=== PATIENT | male | born 1955 | race Two or more races ===

== ENCOUNTER 2018-07-05 09:58 | Outpatient (CLI) | payer BC, SELFPAY ==
[2018-07-05 13:09] LABS: Anion Gap 5.2 mmol/L (3-11); BUN 13 mg/dL (7-18); CO2 28.8 mmol/L (21.0-32.0); CREATININE 0.81 mg/dL (0.70-1.30); Chloride 105 mmol/L (98-107); Glucose 96 mg/dL (70-100); Potassium 4.7 mmol/L (3.5-5.1); Sodium 139 mmol/L (136-145)
== END 2018-07-05 10:18 ==
PROVIDERS: PCP Family Medicine; Visit Provider Family Medicine
DX: Z00.00 Encounter for general adult medical examination without abnormal findings (principal)
CPT/HCPCS: 36415; 80048

== ENCOUNTER 2019-07-14 09:47 | Outpatient (CLI) | payer MEDICARE, OTHER, SELFPAY ==
[2019-07-14 13:15] LABS: Anion Gap 7.2 mmol/L (3-11); BUN 15 mg/dL (7-18); CO2 27.8 mmol/L (21.0-32.0); CREATININE 0.83 mg/dL (0.70-1.30); Calcium 8.5 mg/dL (8.5-10.1); Chloride 104 mmol/L (98-107); Glucose 99 mg/dL (70-100); Potassium 5.2 mmol/L (3.5-5.1); Sodium 139 mmol/L (136-145)
== END 2019-07-14 10:07 ==
PROVIDERS: PCP Family Medicine; Visit Provider Family Medicine
DX: I10 Essential (primary) hypertension (principal)
CPT/HCPCS: 36415; 80048

== ENCOUNTER → 2019-08-07 14:55 | Outpatient (BNVA) | payer MEDICARE, OTHER, SELFPAY | PROVIDERS: PCP Family Medicine; Referring Provider Family Medicine; Visit Provider Surgery | DX: R10.32 Left lower quadrant pain (principal); G89.29 Other chronic pain; M25.552 Pain in left hip; Z87.19 Personal history of other diseases of the digestive system; Z85.72 Personal history of non-Hodgkin lymphomas | CPT/HCPCS: 99202 ==

== ENCOUNTER 2019-08-11 04:38 | Outpatient (CLI) | payer MEDICARE, OTHER, SELFPAY ==
--- NOTE | 2019-08-11 12:56 | DI.US_ITS ---
EXAM: US SOFT TISS EXTREMITY/GROIN CLINICAL HISTORY: Left groin pain/discomfort. History of prior hernia repair. TECHNIQUE: Ultrasound performed using standard protocol. COMPARISON: No exams were available for comparison FINDINGS: No hernia is identified. There are a few small left groin lymph nodes which maintain a fatty hilum. IMPRESSION: No evidence of groin hernia.
== END 2019-08-11 04:58 ==
PROVIDERS: PCP Family Medicine; Visit Provider Surgery
DX: R59.0 Localized enlarged lymph nodes (principal); R10.32 Left lower quadrant pain; Z98.890 Other specified postprocedural states; G89.29 Other chronic pain
CPT/HCPCS: 76882

== ENCOUNTER 2020-05-16 08:52 | Outpatient (REF) | payer MEDICARE, OTHER, SELFPAY ==
--- NOTE | 2020-05-17 08:35 | SKI_PTH ---
PATIENT: Luis Mcpherson LOC: [facility]#:[id number] AGE/SX: 64/M ROOM: RE05/16/[address]: Andrea Ritter MD : [id number] BED: DIS: 05/16/2020 SPEC #: [id number] RECD: 05/17/20 12:47 STATUS: TRICIA REMalcom #: [id number] YARI: 05/17/20 08:[address]: Andrea Ritter DEPT: Surgical Specimen RECD BY: Joanie Brown ENTERED: 05/17/20 12:50 SP TYPE: ELODIA ANTUNEZ DR: DANNY Olivarez Tissues: 1 - SKIN BIOPSY(SHAVE/PUNCH) Procedures: SKIN LEVEL 4 Comments: [id number]
== END 2020-05-16 09:12 ==
LOC: LBN 08:52
PROVIDERS: PCP Nurse Practitioner Family; Visit Provider Otolaryngology
DX: C44.41 Basal cell carcinoma of skin of scalp and neck (principal)
CPT/HCPCS: 88305

== ENCOUNTER 2020-07-24 02:59 | Outpatient (CLI) | payer MEDICARE, OTHER, SELFPAY ==
[2020-07-24 08:02] LABS: Absolute Basophil Count 0.02 10^3/uL (0.0-0.2); Absolute Eosinophil Count 0.11 10^3/uL (0.0-0.7); Absolute Lymphocyte Count 0.43 10^3/uL (1.2-3.4); Absolute Monocyte Count 0.39 10^3/uL (0.1-0.8); Absolute Neutrophil Count 1.96 10^3/uL (1.2-6.7); Basophils % 0.7; Eosinophils % 3.8; HCT 38.1 % (40.0-50.0); HGB 13.2 g/dL (13.5-17.5); Lymphocytes % 14.8; MCH 33.2 pg (27.0-33.0); MCHC 34.6 % (32.0-36.0); MCV 95.7 fL (80-95); MPV 9.4 fL (8.0-11.0); Monocytes % 13.4; Neutrophils % 67.3; Nucleated RBC 0 %; Platelet Count 202 10^3/uL (130-400); RBC 3.98 10^6/uL (4.36-5.78); RDW-SD 42.2 fL; WBC 2.91 10^3/uL (4.4-10.8)
[2020-07-24 08:20] LABS: Hemoglobin A1C 5.3 % (<5.7)
[2020-07-24 09:21] LABS: Anion Gap 4.5 mmol/L (3-11); BUN 12 mg/dL (7-18); CO2 29.5 mmol/L (21.0-32.0); CREATININE 0.77 mg/dL (0.70-1.30); Calcium 8.6 mg/dL (8.5-10.1); Calculated LDL 89 mg/dL (<100); Chloride 104 mmol/L (98-107); Cholesterol 151 mg/dL (<200); Glucose 85 mg/dL (74-106); HDL Cholesterol 55 mg/dL (40-60); Potassium 4.5 mmol/L (3.5-5.1); Sodium 138 mmol/L (136-145); Triglyceride 35 mg/dL (<150)
[2020-07-24 09:55] LABS: FREE T4 0.83 ng/dL (0.76-1.46)
[2020-07-29 23:16] LABS: Thyroglobulin Antibody <15 U/mL (<=60); Thyroperoxidase Antibody 45 U/mL (<=60)
== END 2020-07-24 03:19 ==
PROVIDERS: PCP Nurse Practitioner Family; Visit Provider Nurse Practitioner Family
DX: I10 Essential (primary) hypertension (principal); R73.01 Impaired fasting glucose; R79.89 Other specified abnormal findings of blood chemistry; L65.9 Nonscarring hair loss, unspecified; Z85.72 Personal history of non-Hodgkin lymphomas
CPT/HCPCS: 36415; 80048; 80061; 86376; 83036; 84439; 84443; 85025

== ENCOUNTER 2020-09-02 04:02 | Outpatient (CLI) | payer MEDICARE, OTHER, SELFPAY ==
[2020-09-02 09:27] LABS: Ferritin 68 ng/mL (26-388); Folate 17.6 ng/mL (8.6-20.0); Vitamin B12 488 pg/mL (193-986)
== END 2020-09-02 04:22 ==
PROVIDERS: PCP Nurse Practitioner Family; Visit Provider Nurse Practitioner Family
DX: D64.9 Anemia, unspecified (principal)
CPT/HCPCS: 36415; 82607; 82728; 82746

== ENCOUNTER 2021-08-01 01:18 | Outpatient (CLI) | payer MEDICARE, SELFPAY ==
[2021-08-01 12:59] LABS: Absolute Basophil Count 0.02 10^3/uL (0.0-0.2); Absolute Eosinophil Count 0.05 10^3/uL (0.0-0.7); Absolute Lymphocyte Count 0.42 10^3/uL (1.2-3.4); Absolute Monocyte Count 0.43 10^3/uL (0.1-0.8); Absolute Neutrophil Count 1.42 10^3/uL (1.2-6.7); Basophils % 0.9; Eosinophils % 2.1; HGB 13.1 g/dL (13.5-17.5); Lymphocytes % 17.9; MCH 31.8 pg (27.0-33.0); MCHC 33.6 % (32.0-36.0); MCV 94.7 fL (80-95); MPV 9.8 fL (8.0-11.0); Monocytes % 18.4; Neutrophils % 60.7; Nucleated RBC 0 %; Platelet Count 215 10^3/uL (130-400); RBC 4.12 10^6/uL (4.36-5.78); RDW 11.9 % (11.8-14.1); RDW-SD 41.2 fL; WBC 2.34 10^3/uL (4.4-10.8)
[2021-08-01 13:11] LABS: ESR < 1 mm/hr (0-20)
[2021-08-01 13:24] LABS: Anion Gap 5.7 mmol/L (3-11); BUN 13 mg/dL (7-18); CO2 28.3 mmol/L (21.0-32.0); CREATININE 0.8 mg/dL (0.70-1.30); Calcium 8.7 mg/dL (8.5-10.1); Chloride 104 mmol/L (98-107); Glucose 86 mg/dL (74-106); Potassium 4.7 mmol/L (3.5-5.1); Sodium 138 mmol/L (136-145)
[2021-08-01 13:32] LABS: C-Reactive Protein < 0.05 mg/dL (0.0-0.3)
== END 2021-08-01 01:19 | disposition home or self-care (01) ==
LOC: LOS 01:18
PROVIDERS: PCP Nurse Practitioner Family; Visit Provider Nurse Practitioner Family
DX: I10 Essential (primary) hypertension; Z85.72 Personal history of non-Hodgkin lymphomas; M79.89 Other specified soft tissue disorders
CPT/HCPCS: 36415; 80048; 85652; 85025; 86140

== ENCOUNTER 2022-06-25 18:55 | Outpatient (REF) | payer MEDICARE, SELFPAY ==
[2022-06-26 23:05] LABS: Campylobacter PCR Negative (Negative); Salmonella PCR Negative (Negative); Shiga Toxin PCR Negative (Negative); Shigella/Enteroinvasive Ecoli Negative (Negative)
== END 2022-06-25 18:56 | disposition home or self-care (01) ==
LOC: LBN 18:55
PROVIDERS: Nurse Practitioner Family; PCP Nurse Practitioner Family; Visit Provider Nurse Practitioner Family
DX: R19.7 Diarrhea, unspecified (principal)
CPT/HCPCS: 87505

== ENCOUNTER 2022-06-28 18:56 | Emergency (ER) | payer MEDICARE, SELFPAY ==
[2022-06-28 19:14] VITALS: BP 150/92; PULSE 69; RESP 18; TEMP 36.6; O2SAT 100
--- NOTE | 2022-06-28 20:23 | ED.GENADUL_ITS ---
Discharge Plan Disposition Patient Disposition: HOME Condition: Stable Discharge Details Clinical Impression: Alteration in vision Primary Care Provider: Martha Guajardo ED Provider: Darrell Johnston Home Meds and New Rx's Prescriptions: Continued loperamide 2 mg capsule 2 mg PO QID PRN (Reason: loose stool) Qty: 60 0RF lisinopril 20 mg tablet 20 mg PO DAILY Qty: 90 4RF Discharge Instructions Additional Instructions: your visual exam did not show concerning findings and your history was not consistent with symptoms of a stroke of the eye follow up with your eye care provider within 1 week if you feel more ill, have decrease in vision or pain in the eye return to the emergency department for reevaluation Medical Decision Making 66 yo male with hx of htn and wears contacts comes in with complaints of blurred vision. He states he has had diarrhea for about a week, denies fevers or abdominal pain or n/v. He has been seeing his pcp for this. Today he felt well but an hour or so ago he was standing when in his left eye in the lower left visual field he noticed it was blurry and appeared blue and wavy. Denies loss of vision or seeing any blackness indicating loss of vision. no pain, denies trauma. The symptoms resolved and he came here for an evaluation. Denies any slurred speech or weakness. HE arrives stable, speaking in full sentences with normal gait. He has no periorbital swelling, normal conjunctiva, eomi and perrl in both eyes. He has 20/25 vision and no visual field deficits. He has normal appearing retina on exam and normal vessels, no evidence of vitreal hemorrhage nor retinal hemorrhage and would not expect his symptoms to have resolved if these were the cause. HE has no findings to suggest central retinal artery or vein occlusion. He has no temporal artery tenderness to suggest giant cell arteritis. His symptoms are not consistent with amaurosis fugax and do not feel cva/tia workup indicated. Suspect possible floaters or other nonemergent pathology that can be followed up with his eye care provider he already sees. Return precautions given Differential Diagnosis Differential Diagnosis: macular degeneration, cataract, floaters HPI General Mode of arrival: ambulatory . Date/Time Provider Initiated Documentation: 06/28/22 19:24 . Limitations to Documentation: no limitations . Information obtained by: patient . History of Present Illness 66 year old M presents to the emergency department with the chief complaint of visual changes, described as moderate, Patient started experiencing this hour(s) (1) and it has been now resolved. No relieving factors improve symptom(s), No exacerbating factors reported . Patient notes no other symptoms.. Related Data Home Medications Medication Instructions Recorded Confirmed lisinopril 20 mg tablet 20 mg PO DAILY #90 tabs 10/10/21 06/28/22 loperamide 2 mg capsule 2 mg PO QID PRN loose stool #60 06/25/22 06/28/22 caps Previous Rx's Medication Instructions Recorded lisinopril 20 mg tablet 20 mg PO DAILY #90 tabs 10/10/21 loperamide 2 mg capsule 2 mg PO QID PRN loose stool #60 06/25/22 caps Allergies Allergy/AdvReac Type Severity Reaction Status Date / Time No Known Allergies Allergy Verified 06/28/22 19:17 General Stated Complaint: EyeProblem STEPHEN: 4 Review of Systems All systems reviewed & are unremarkable except as noted in HPI and below Constitutional Constitutional: Denies chills, Denies fever(s) and Denies weakness Eyes Eyes: Denies loss of vision Cardiovascular Cardiovascular: Denies chest pain and Denies dyspnea Respiratory Respiratory: Denies cough and Denies dyspnea Gastrointestinal Gastrointestinal: Denies abdominal pain, Denies nausea and Denies vomiting Musculoskeletal Musculoskeletal: Denies joint swelling Neurologic Neurologic: Denies loss of vision and Denies weakness PFSH All Active Problems (Updated 06/28/22 @ 20:31 by Darrell Johnston MD) Alteration in vision (Acute) Nasal vestibulitis (Acute) Essential hypertension (Chronic) Medical History Basal cell carcinoma of scalp or skin of neck Non Hodgkin's lymphoma In the 1980s s/p chemo, radiation Surgical History S/P left inguinal hernia repair Family History Mother , AGE 60 Breast cancer Hypertension Father , AGE 90 Essential hypertension Heart disease Alcohol abuse Bladder cancer Sister Hyperlipidemia Breast cancer Brother Heart disease Hypertension Brother Thyroid cancer Maternal Grandfather No problems noted. Maternal Grandmother No problems noted. Paternal Grandfather No problems noted. Paternal Grandmother No problems noted. Social History Smoking/Tobacco Use Status: Never Smoking risk assessment performed?: Yes Alcohol Intake: current Alcohol Intake frequency: a few times a month Drug use: Never Substance use type: does not use current occupation: [employer] What type of physical activity do you participate in: walking and bicycling Frequency: 5-6 times per week Do you feel safe at home: Yes Do you feel safe in your relationship?: Yes Exam Const General: no acute distress Orientation: alert HENMT Head: normal to inspection Ears: external ears normal General nose exam: external nose normal Mouth: moist mucous membranes Eyes General: appearance normal, both eyes and all related structures Neck Neck: normal visual inspection Resp Effort & Inspection: normal respiratory effort and able to speak in complete sentences Cardio Rate: regular rate Skin General skin exam: no rashes or lesions noted Neuro General: patient alert and patient oriented x3 Extrem General: normal to inspection Psych Mental Status: mental status grossly normal Course Vital Signs Vital signs: Vital Signs Temperature 36.6 C 06/28/22 19:14 Pulse 69 06/28/22 19:14 Respiratory Rate 18 06/28/22 19:14 Blood Pressure 150/92 H 06/28/22 19:14 Pulse Oximetry 100 06/28/22 19:14 Temperature 36.6 C 06/28/22 19:14 Pulse 69 06/28/22 19:14 Respiratory Rate 18 06/28/22 19:14 Respiratory Effort Non-Labored 06/28/22 19:18 Blood Pressure 150/92 H 06/28/22 19:14 Pulse Oximetry 100 06/28/22 19:14 Pain Level 0 06/28/22 19:14 PAWSS Have you Been Recently Intoxicated or Drunk Within the Last 30 days?: No Have you Ever Experienced Previous Episodes of Alcohol Withdrawal?: No Have you ever Experienced Withdrawal Seizures?: No Have you ever Experienced Delirium Tremens(DT)s?: No Have you ever undergone Alcohol Rehabilitation Treatment (i.e, inpt ot outpatient treatment programs)?: No Have you ever Experienced Blackouts?: No Have you ever Combined Alcohol with other Downers within the last 90 days?: No Have you ever Combined Alcohol with any other Substance of Abuse during the last 90 days?: No Positive Blood Alcohol level on Presentation? [PCS.BAL]: No Evidence of Increased Autonomic Activity (i.e. HR>120, tremor, sweating, agitation, nausea)?: No Result: 0
== END 2022-06-28 20:37 | disposition home or self-care (01) ==
PROVIDERS: Emergency Provider Emergency Medicine; PCP Nurse Practitioner Family
DX: H53.8 Other visual disturbances (principal); I10 Essential (primary) hypertension; R19.7 Diarrhea, unspecified
CPT/HCPCS: 99281; 99282

== ENCOUNTER 2022-07-08 02:53 | Outpatient (CLI) | payer MEDICARE, SELFPAY ==
[2022-07-08 12:30] LABS: Abs Immature Grans 0.01 10^3/uL (0.0-0.06); Absolute Basophil Count 0.03 10^3/uL (0.0-0.2); Absolute Eosinophil Count 0.03 10^3/uL (0.0-0.7); Absolute Lymphocyte Count 0.57 10^3/uL (1.2-3.4); Absolute Monocyte Count 0.39 10^3/uL (0.1-0.8); Absolute Neutrophil Count 2.35 10^3/uL (1.2-6.7); Basophils % 0.9; Eosinophils % 0.9; HCT 36.8 % (40.0-50.0); HGB 12.2 g/dL (13.5-17.5); Immature Grans % 0.3; Lymphocytes % 16.9; MCH 31.9 pg (27.0-33.0); MCHC 33.2 % (32.0-36.0); MCV 96 fL (80-95); MPV 10.2 fL (8.0-11.0); Monocytes % 11.5; Neutrophils % 69.5; Platelet Count 234 10^3/uL (130-400); RBC 3.83 10^6/uL (4.36-5.78); RDW-SD 42.5 fL; WBC 3.38 10^3/uL (4.4-10.8)
[2022-07-08 12:51] LABS: ALT 27 U/L (16-63); AST 25 U/L (15-37); Albumin 3.3 g/dL (3.4-5.0); Alkaline Phosphatase 72 U/L (46-116); Anion Gap 4.7 mmol/L (3-11); BUN 13 mg/dL (7-18); Bilirubin, Total 0.6 mg/dL (0.2-1.0); CO2 28.3 mmol/L (21.0-32.0); CREATININE 0.9 mg/dL (0.70-1.30); Calcium 8.5 mg/dL (8.5-10.1); Chloride 102 mmol/L (98-107); Estimated GFR 93.03 (mL/min/1.73m2); FREE T4 1.09 ng/dL (0.76-1.46); Glucose 85 mg/dL (74-106); Potassium 4.5 mmol/L (3.5-5.1); Sodium 135 mmol/L (136-145); TSH 3.68 uIU/mL (0.36-3.74); Total Protein 6.1 g/dL (6.4-8.2)
== END 2022-07-08 02:54 | disposition home or self-care (01) ==
LOC: LOS 02:53
PROVIDERS: PCP Nurse Practitioner Family; Visit Provider Nurse Practitioner Family
DX: I10 Essential (primary) hypertension (principal); Z85.72 Personal history of non-Hodgkin lymphomas
CPT/HCPCS: 36415; 80053; 84439; 84443; 85025

== ENCOUNTER 2023-02-01 13:56 | Outpatient (CLI) | payer MEDICARE, SELFPAY ==
[2023-02-01 12:21] LABS: Absolute Basophil Count 0.05 10^3/uL (0.0-0.2); Absolute Lymphocyte Count 0.65 10^3/uL (1.2-3.4); Absolute Monocyte Count 0.47 10^3/uL (0.1-0.8); Absolute Neutrophil Count 1.65 10^3/uL (1.2-6.7); Basophils % 1.7; Eosinophils % 3.4; HCT 40.4 % (40.0-50.0); HGB 13.7 g/dL (13.5-17.5); Lymphocytes % 22.3; MCHC 33.9 % (32.0-36.0); MCV 94 fL (80-95); MPV 10.1 fL (8.0-11.0); Monocytes % 16.1; Neutrophils % 56.5; Platelet Count 214 10^3/uL (130-400); RBC 4.28 10^6/uL (4.36-5.78); RDW 12.5 % (11.8-14.1); RDW-SD 43.5 fL; WBC 2.92 10^3/uL (4.4-10.8)
== END 2023-02-01 13:57 | disposition home or self-care (01) ==
PROVIDERS: PCP Nurse Practitioner Family; Visit Provider Nurse Practitioner Family
DX: D53.9 Nutritional anemia, unspecified (principal)
CPT/HCPCS: 36415; 85025

== ENCOUNTER 2023-08-12 02:33 | Outpatient (CLI) | payer MEDICARE, SELFPAY ==
[2023-08-12 14:05] LABS: Abs Immature Grans 0.01 10^3/uL (0.0-0.06); Absolute Basophil Count 0.03 10^3/uL (0.0-0.2); Absolute Eosinophil Count 0.03 10^3/uL (0.0-0.7); Absolute Lymphocyte Count 0.35 10^3/uL (1.2-3.4); Absolute Neutrophil Count 1.78 10^3/uL (1.2-6.7); Basophils % 1.2; Eosinophils % 1.2; HCT 36.6 % (40.0-50.0); HGB 12.7 g/dL (13.5-17.5); Immature Grans % 0.4; Lymphocytes % 13.5; MCH 32.2 pg (27.0-33.0); MCHC 34.7 % (32.0-36.0); MCV 93 fL (80-95); MPV 9.2 fL (8.0-11.0); Monocytes % 15.4; Neutrophils % 68.3; Platelet Count 204 10^3/uL (130-400); RBC 3.94 10^6/uL (4.36-5.78); RDW 11.9 % (11.8-14.1); RDW-SD 40.5 fL
[2023-08-12 14:29] LABS: Anion Gap 7.1 mmol/L (3-11); BUN 15 mg/dL (7-18); CO2 25.9 mmol/L (21.0-32.0); CREATININE 0.9 mg/dL (0.70-1.30); Calcium 8.7 mg/dL (8.5-10.1); Calculated LDL 72 mg/dL (<100); Chloride 100 mmol/L (98-107); Cholesterol 131 mg/dL (<200); Estimated GFR 92.45 (mL/min/1.73m2); Glucose 125 mg/dL (74-106); HDL Cholesterol 49 mg/dL (40-60); Potassium 4.2 mmol/L (3.5-5.1); Sodium 133 mmol/L (136-145); Triglyceride 54 mg/dL (<150)
[2023-08-13 08:05] LABS: Hepatitis C Ab w Rflx HCV PCR Negative (Negative)
== END 2023-08-12 02:34 | disposition home or self-care (01) ==
LOC: LBO 02:33
PROVIDERS: PCP Nurse Practitioner Family; Visit Provider Nurse Practitioner Family
DX: Z00.00 Encounter for general adult medical examination without abnormal findings (principal)
CPT/HCPCS: 36415; 80048; 80061; 82306; 86803; 85025

== ENCOUNTER 2024-04-18 03:06 | Outpatient (CLI) | payer MEDICARE, SELFPAY ==
[2024-04-18 09:32] LABS: Absolute Basophil Count 0.02 10^3/uL (0.0-0.2); Absolute Eosinophil Count 0.07 10^3/uL (0.0-0.7); Absolute Lymphocyte Count 0.56 10^3/uL (1.2-3.4); Absolute Neutrophil Count 1.74 10^3/uL (1.2-6.7); Basophils % 0.7 %; Eosinophils % 2.6 %; HGB 13.8 g/dL (13.5-17.5); Lymphocytes % 20.8 %; MCH 32.9 pg (27.0-33.0); MCHC 35.4 % (32.0-36.0); MCV 93 fL (80-95); MPV 9.6 fL (8.0-11.0); Monocytes % 11.2 %; Neutrophils % 64.7 %; Platelet Count 245 10^3/uL (130-400); RBC 4.19 10^6/uL (4.36-5.78); RDW 12.1 % (11.8-14.1); RDW-SD 41.9 fL; WBC 2.69 10^3/uL (4.4-10.8)
[2024-04-18 10:40] LABS: BUN 11 mg/dL (7-18); CREATININE 0.8 mg/dL (0.70-1.30); Calcium 9.2 mg/dL (8.5-10.1); Chloride 103 mmol/L (98-107); Estimated GFR 95.21 (mL/min/1.73m2); Glucose 95 mg/dL (74-106); Potassium 4.4 mmol/L (3.5-5.1); Sodium 139 mmol/L (136-145); Vitamin D 25 Total 29.1 ng/mL (30-100)
[2024-04-18 20:29] LABS: HIV-1/2 Ag & Ab Screen Negative (Negative)
[2024-04-21 13:19] LABS: HBs Antibody, Quant 5.9 mIU/mL (See Note); Hep B Surface Ab Negative (See Note); Hepatitis B Core Antibody Negative (Negative); Hepatitis B Surface Antigen Negative (Negative)
== END 2024-04-18 03:07 | disposition home or self-care (01) ==
PROVIDERS: PCP Nurse Practitioner Family; Visit Provider Nurse Practitioner Family
DX: D72.819 Decreased white blood cell count, unspecified (principal); E55.9 Vitamin D deficiency, unspecified
CPT/HCPCS: 36415; 80048; 82306; 86704; 86706; 87340; 87389; 85025

== ENCOUNTER 2025-04-24 08:28 | Outpatient (CLI) | payer MEDICARE, SELFPAY ==
[2025-04-24 12:22] LABS: Abs Immature Grans 0.00 10^3/uL (0.0-0.06); HCT 38.5 % (40.0-50.0); HGB 13.4 g/dL (13.5-17.5); Immature Grans % 0.0 %; MCH 33.2 pg (27.0-33.0); MCHC 34.8 % (32.0-36.0); MCV 95 fL (80-95); MPV 10.0 fL (8.0-11.0); Platelet Count 233 10^3/uL (130-400); RBC 4.04 10^6/uL (4.36-5.78); RDW 12.3 % (11.8-14.1); RDW-SD 43.4 fL; WBC 3.05 10^3/uL (4.4-10.8)
[2025-04-24 13:01] LABS: ALT 45 U/L (16-63); AST 34 U/L (15-37); Albumin 3.6 g/dL (3.4-5.0); Alkaline Phosphatase 71 U/L (46-116); Anion Gap 6.0 mmol/L (3-11); BUN 15 mg/dL (7-18); Bilirubin, Total 0.9 mg/dL (0.2-1.0); CO2 28.0 mmol/L (21.0-32.0); Calcium 9.0 mg/dL (8.5-10.1); Chloride 102 mmol/L (98-107); Estimated GFR 98.51 (mL/min/1.73m2); Glucose 90 mg/dL (74-106); Potassium 4.5 mmol/L (3.5-5.1); Sodium 136 mmol/L (136-145); Total Protein 6.5 g/dL (6.4-8.2); Vitamin D 25 Total 27 ng/mL (30-100)
== END 2025-04-24 08:29 | disposition home or self-care (01) ==
LOC: LOS 08:28
PROVIDERS: PCP Nurse Practitioner Family; Visit Provider Nurse Practitioner Family
DX: Z85.72 Personal history of non-Hodgkin lymphomas (principal); E55.9 Vitamin D deficiency, unspecified
CPT/HCPCS: 36415; 80053; 82306; 85025